=== PATIENT | female | born 1980 | race Caucasian/White ===

== ENCOUNTER 2019-01-04 07:45 | Inpatient (IN) | payer BC, OTHER ==
[2019-01-04] MEDS: LACTATED RINGERS 1,000 ML IV ONE ×2 (08:33→09:45)
[2019-01-04 08:43] LABS: Glucose,Whole Blood 85 mg/dL (75-99)
[2019-01-04] MEDS ORDERED: CITRIC ACID-SODIUM CITRATE 15 ML CUP PO ONE (09:34)
[2019-01-04 09:42] LABS: Basophils # (A) 0.1 k/uL (0-0.2); Basophils % (A) 1 %; Eosinophils # (A) 0.1 k/uL (0-0.7); Eosinophils % (A) 2 %; HCT 36.3 % (34.0-46.0); HGB 12.8 gm/dL (11.4-16.0); Lymphocytes # (A) 1.4 k/uL (1.0-4.8); Lymphocytes % (A) 16 %; MCH 32.8 pg (25.0-35.0); MCHC 35.1 g/dL (31.0-37.0); MCV 93.4 fL (80.0-100.0); Mean Platelet Volume 7.4; Monocytes # (A) 0.6 k/uL (0-1.0); Monocytes % (A) 7 %; Neutrophils # (A) 6.4 k/uL (1.3-7.7); Neutrophils % (A) 73 %; Platelet Count 272 k/uL (150-450); RBC 3.88 m/uL (3.80-5.40); RDW 12.6 % (11.5-15.5); WBC 8.8 k/uL (3.8-10.6)
[2019-01-04] MEDS ORDERED: ePHEDrine SULFATE/0.9% NACL/PF 50 MG/5 ML SYRINGE IV ONE (10:01)
[2019-01-04] MEDS ORDERED: DEXAMETHASONE SOD PHOS (MDV) 100 MG/10 ML VIAL ONE (10:01)
[2019-01-04] MEDS ORDERED: ONDANSETRON 4 MG/2 ML VIAL ONE (10:01)
[2019-01-04] MEDS ORDERED: KETOROLAC 30 MG/ML 1 ML VIAL ONE (10:01)
[2019-01-04] MEDS ORDERED: fentaNYL (PF) 50 MCG/ML 2 ML AMP ONE (10:01)
--- NOTE | 2019-01-04 11:15 | P.HPOB ---
History of Present Illness H&P Date: 01/04/19 Chief Complaint: Strong, regular uterine contractions, 9 out of 10 intensity. This is a 38-year-old white female 4 para 3003 EDC 01/31/2019 at 36 and one sevenths weeks' gestation. Patient presents from home with strong regular uterine contractions every 3 minutes apart. She rates them 9 out of 10. She denies vaginal bleeding or fluid leakage. Fetus is been active throughout the . Past medical history is negative. Past surgical history section 2006, 2013. Patient is planning repeat . Family history is noncontributory. Social history patient is a nonsmoker, she is , she denies any alcohol or drug use. Current medications vitamins daily. ALLERGIES none known. Obstetric history is significant for gestational diabetes, good home blood sugar control. records not available at time of this dictation. On exam she is 5 foot 3 inches, 151 pounds, blood pressure 112/71, pulse 76, respirations 18, temperature 97.1. The general physical exam is within normal limits. The patient is in obvious distress. She is having uterine contractions every 3 minutes apart. Initial cervical exam revealed cervix to be posterior, high, closed, long. Cervical exam at this time cervix is 1 cm dilated, 50% effa randi, -2 station, vertex presentation, soft. heart rate is consistent with reactive NST. Patient is judged to be in early active labor. Assessment: 36 and one sevenths weeks intrauterine , early spontaneous labor, 2 previous sections declining . Advanced maternal age. Otherwise all signs reassuring. Plan: We'll proceed with repeat low transverse section. Patient is offered and declining option for tubal ligation. Antibiotic prophylaxis per hospital protocol. Dock Manager in-house and aware. Review of Systems Constitutional: Reports as per HPI Past Medical History History of Any Multi-Drug Resistant Organisms: None Reported Past Surgical History: Section Smoking Status: Never smoker Medications and Allergies Home Medications Medication Instructions Recorded Confirmed Type Pnv No.95/Ferrous Fum/Folic AC 1 each PO DAILY 01/04/19 01/04/19 History [ Multivitamin Tablet] Allergies Allergy/AdvReac Type Severity Reaction Status Date / Time No Known Allergies Allergy Verified 01/04/19 08:26 Exam Vital Signs Temp Pulse Resp BP Pulse Ox 01/04/19 08:27 97.1 F L 76 18 112/71 100 Intake and Output 01/03/19 01/04/19 01/04/19 22:59 06:59 14:59 Other: Weight 68.946 kg See dictation under HPI please Results Result Diagrams: 01/04/19 08:25 Assessment and Plan Assessment: 36 and one sevenths weeks intrauterine , early spontaneous labor. 2 previous sections, for repeat low transverse section. Plan: Antibiotic prophylaxis is given. Anesthesia and pediatric teams present and aware. We'll proceed with repeat low transverse section. Time with Patient: Less than 30
[2019-01-04] MEDS ORDERED: diphenhydrAMINE 25 MG CAP PO PRN (11:21)
[2019-01-04] MEDS ORDERED: ZOLPIDEM 5 MG TAB PO PRN (11:21)
[2019-01-04] MEDS ORDERED: ONDANSETRON 4 MG/2 ML VIAL IVP PRN (11:21)
[2019-01-04] MEDS ORDERED: ACETAMINOPHEN TAB 325 MG TAB PO PRN (11:21)
[2019-01-04] MEDS ORDERED: diphenhydrAMINE 50 MG/ML 1 ML VIAL IVP PRN ×2 (11:21)
[2019-01-04] MEDS ORDERED: METOCLOPRAMIDE 5 MG/ML 2 ML VIAL IVP PRN (11:21)
[2019-01-04] MEDS ORDERED: diphenhydrAMINE 50 MG CAP PO PRN (11:21)
[2019-01-04] MEDS ORDERED: IBUPROFEN 600 MG TAB PO PRN (11:21)
[2019-01-04] MEDS ORDERED: SIMETHICONE 80 MG CHEWABLE PO PRN (11:21)
[2019-01-04] MEDS ORDERED: NALOXONE 0.4 MG/ML 1 ML VIAL IV PRN (11:21)
--- NOTE | 2019-01-04 11:21 | P.OP ---
Date of Procedure: 01/04/19 Preoperative Diagnosis: 36 and one sevenths weeks intrauterine , 2 previous sections, early active labor. Advanced maternal age. Gestational diabetes. Postoperative Diagnosis: Liveborn female infant. Nuchal cord 1. Normal-appearing tubes and ovaries bilaterally. Procedure(s) Performed: Repeat low transverse section Anesthesia: spinal Surgeon: Katie Lucio Trade Recruiter #1: Rush Wong Estimated Blood Loss (ml): 600 IV fluids (ml): 1,300 Urine output (ml): 1,000 Pathology: other (Placenta) Condition: stable Operative Findings: Liveborn female , left occiput transverse position. Normal-appearing tubes and ovaries bilaterally. Nuchal cord 1. Description of Procedure: Patient is brought to the operating suite and 2 g of Kefzol are given. A spinal with Duramorph is placed without difficulty. Patient is put in the dorsal supine position with left lateral uterine displacement. Tovar catheter placed to direct drainage. The appropriate timeout is performed to assure proper patient and procedural identification. Analgesia is checked and noted to be adequate. A low transverse skin incision is made in this is carried down through the subcutaneous tissue to the fascia. Fascia is isolated, scored, and extended bilaterally with curved Carver scissors. Bladder blade is placed over the dome of the bladder, Metzenbaum scissors are used to mobilize the bladder from the lower uterine segment. At all times the bladder is Well from the operative field to avoid bladder and/or ureteral injury. A low transverse uterine incision is made. Lower uterine segment is noted to be thin. Artificial amniorrhexis reveals clear fluid. The incision is extended with blunt dissection. Infant's head is delivered in the left occiput transverse position. There is a nuchal cord 1 that is reduced. Patient is officially delivered of a liveborn female infant at 1021 hrs. The oropharynx, nasopharynx, and external nares are all thoroughly bulb suctioned. Umbilical cord is doubly clamped and ligated, is handed to waiting surgical first assistant where scores of 8 and 9 at one and 5 minutes respectively are given. She weighs 2800 g or 6 lbs. 3 oz. Cord blood i s sent to the lab. The placenta is delivered manually, it is inspected and noted to be intact with trivascular cord. It is sent to pathology for evaluation. The uterus is massaged and externalized. It is swept clean with a sterile sponge to avoid any products of conception retained. The uterus is closed in a two-step fashion. First layer is running locking with 0 Vicryl, second layer also with 0 Vicryl in an imbricated fashion. Hemostasis is excellent. The gutters are cleaned with a sterile sponge and the uterus is gently placed back into the abdominal cavity. Peritoneum is allowed close by secondary intention. Fascia is closed in a running stitch of 0 Vicryl with over ligation in the midline. Subcutaneous tissues were approximate with 2-0 Vicryl. 4-0 undyed Monocryl is used for final skin closure. Steri-Strips and Mastisol are applied to the wound. All sponge needle and enhancement counts are correct. Patient is brought back to recovery room in very good condition with stable vital signs including blood pressure 113/56, pulse 75, 100% O2 saturation. [place] appears to be doing well and is in the room with the patient and her .
[2019-01-04] MEDS ORDERED: LACTATED RINGERS 1,000 ML IV SCH (11:30)
[2019-01-04 12:07] VITALS: BMI 26.9
[2019-01-04] MEDS: KETOROLAC 30 MG/ML 1 ML VIAL IVP PRN ×2 (16:05→22:09)
[2019-01-04] MEDS: SENNOSIDES-DOCUSATE SODIUM 1 EACH TAB PO SCH (22:10)
[2019-01-05] MEDS: KETOROLAC 30 MG/ML 1 ML VIAL IVP PRN (04:12)
[2019-01-05 07:03] LABS: Basophils % (A) 0 %; Eosinophils # (A) 0.2 k/uL (0-0.7); Eosinophils % (A) 1 %; HCT 33.2 % (34.0-46.0); HGB 11.3 gm/dL (11.4-16.0); Lymphocytes # (A) 1.5 k/uL (1.0-4.8); Lymphocytes % (A) 13 %; MCH 32.2 pg (25.0-35.0); MCHC 34.1 g/dL (31.0-37.0); MCV 94.4 fL (80.0-100.0); Mean Platelet Volume 7.9; Monocytes # (A) 0.8 k/uL (0-1.0); Monocytes % (A) 7 %; Neutrophils # (A) 8.9 k/uL (1.3-7.7); Neutrophils % (A) 77 %; Platelet Count 260 k/uL (150-450); RBC 3.51 m/uL (3.80-5.40); RDW 12.5 % (11.5-15.5); WBC 11.6 k/uL (3.8-10.6)
[2019-01-05] MEDS: SENNOSIDES-DOCUSATE SODIUM 1 EACH TAB PO SCH (08:00)
--- NOTE | 2019-01-05 10:56 | P.PN ---
Subjective Progress Note Date: 01/05/19 Principal diagnosis: Postoperative day #1 Slept well. Minimal pain. Breasts are not engorged. No complaints. Objective - Vital Signs Vital signs: Vital Signs Temp 97.7 F 01/05/19 07:53 Pulse 70 01/05/19 07:53 Resp 18 01/05/19 07:53 BP 96/62 01/05/19 07:53 Pulse Ox 99 01/05/19 07:53 Intake & Output 01/04/19 01/05/19 01/05/19 18:59 06:59 18:59 Output Total 5200 Balance -5200 Weight 68.946 kg Output: Urine 4000 Uretheral (Tovar) 800 Estimated Blood Loss 1200 Other: # Voids 1 - Constitutional General appearance: Present: average body habitus, cooperative - EENT Eyes: Present: PERRLA ENT: Present: hearing grossly normal - Neck Neck: Present: normal ROM Thyroid: bilateral: normal size - Cardiovascular Rhythm: regular - Gastrointestinal General gastrointestinal: Present: normal bowel sounds - Genitourinary Genitourinary Comment(s): Fundus firm, midline, symmetric, 18 week size. Incision clean and dry, intact, Steri-Strips applied. - Integumentary Integumentary: Present: normal - Neurologic Neurologic: Present: CNII-XII intact - Musculoskeletal Musculoskeletal: Present: gait normal, strength equal bilaterally - Psychiatric Psychiatric: Present: A&O x's 3, appropriate affect, intact judgment & insight - Labs CBC & Chem 7: 01/05/19 06:55 Labs: Abnormal Lab Results - Last 24 Hours (Table) 01/05/19 Range/Units 06:55 WBC 11.6 H (3.8-10.6) k/uL RBC 3.51 L (3.80-5.40) m/uL Hgb 11.3 L (11.4-16.0) gm/dL Hct 33.2 L (34.0-46.0) % Neutrophils # 8.9 H (1.3-7.7) k/uL Assessment and Plan Assessment: Doing well postoperative day #1 Plan: Continue postoperative care. Likely discharge home tomorrow. Time with Patient: Less than 30
[2019-01-05] MEDS: HYDROcodone/APAP 5-325MG 1 EACH TAB PO PRN ×2 (12:08→15:38)
[2019-01-05 16:16] VITALS: BP 113/69; PULSE 73; RESP 20; TEMP 97.4
--- NOTE | 2019-01-06 07:57 | P.DS ---
Providers Date of admission: 01/04/19 09:44 Expected date of discharge: 01/06/19 Attending physician: Katie Lucio Primary care physician: Stated None Hospital Course: This is a 38-year-old white female 4 para 3003 EDC 01/31/2019 who presented at 36 and one sevenths weeks' gestation. Patient had 2 previous sections and the plan was for repeat . She presented in early spontaneous labor, strong regular uterine contractions with cervical change noted in triage. Her is remarkable for gestational diabetes, diet controlled. Blood sugar normal on admission. Please see dictated history and physical for details. Patient underwent a repeat low transverse section and gave to a liveborn female infant with scores of 8 and 9 at one and 5 minutes respectively. weighed 2800 g or 6 lbs. 3 oz. She did well intraoperatively, there was a nuchal cord 1, infant was in the left occiput transverse position. Please see dictated operative note for details. On the first postoperative day patient did well. infant was noted to have a murmur, echocardiogram suggested a pulmonary artery stenosis. Recommendation was for [facility] the [facility]. On the evening of the first postoperative day patient was doing well, she requested discharge home such that she could be with her baby. Her incision was clean and dry and intact, Steri-Strips applied. Extremities reveal no edema. Chest is clear in all bonilla. Lochia rubra was minimal to moderate. Fundus is firm, midline, symmetric, 18 week size. Patient was judged to be in good condition fo r discharge home. She was reminded no car driving, no intercourse, no heavy lifting. She will use Advil or Aleve [id number] as needed for pain, or ibuprofen, 800 mg every 8 hours as needed. I reminded her no intercourse, tampons or douching. She will follow-up with me in the office in 2 weeks for incision check. She declined the need for a breast pump. Call with any fevers shakes or chills, foul smelling or copious lochia, with the passage of large blood clots, with any pain not alleviated by [id number] medications, with any incision redness or drainage, or indeed with any concerns Patient Condition at Discharge: Good Plan - Discharge Summary Discharge Rx Participant: No New Discharge Prescriptions: No Action Pnv No.95/Ferrous Fum/Folic AC [ Multivitamin Tablet] 1 each PO DAILY Discharge Medication List Pnv No.95/Ferrous Fum/Folic AC [ Multivitamin Tablet] 1 each PO DAILY 01/04/19 [History] Follow up Appointment(s)/Referral(s): Katie Lucio MD [STAFF PHYSICIAN] - 2 Weeks Discharge Disposition: HOME SELF-CARE
== END 2019-01-05 17:14 | disposition home or self-care (01) | DRG 788 ==
LOC: FBPOP 07:45 → 4FBP 09:44
PROVIDERS: ADMIT Obstetrics & Gynecology; ATTEND Obstetrics & Gynecology
PROC: 10D00Z1 Extraction of Products of Conception, Low, Open Approach (ICD-10-PCS; principal; 2019-01-04 10:15)
DX: O24.420 Gestational diabetes mellitus in childbirth, diet controlled (principal); O34.211 Maternal care for low transverse scar from previous cesarean delivery; O69.81X0 Labor and delivery complicated by cord around neck, without compression, not applicable or unspecified; Z37.0 Single live birth
CPT/HCPCS: 59025; 85025; 86850; 86900; 86901; 88307; 96361; 99213